=== PATIENT | female | born 1950 | race Caucasian/White ===

== ENCOUNTER 2021-02-03 12:37 | Emergency (ER) | payer MEDICARE, OTHER, SELFPAY ==
[2021-02-03] VITALS (12 sets, daily range): BP systolic 130–179; BP diastolic 60–86; PULSE 69–99; RESP 18; TEMP 37.7; O2SAT 92–99
--- NOTE | 2021-02-03 13:03 | DI.RAD.S_ITS ---
PROCEDURE: XR ACUTE ABDOMEN SERIES INDICATIONS: vomiting, has g tube TECHNIQUE: One view chest and two views of the abdomen were acquired. COMPARISON: None. FINDINGS: Surgical changes and devices: A gastrostomy tube is seen in place. An apparent vaginal pessary can be seen. Postoperative change of the right shoulder can be seen. Chest: Lungs are clear. The cardiac contours are within normal limits. The aorta demonstrates calcification and tortuosity. No pleural effusions. No pneumoperitoneum. Abdomen: Prominent gas can be seen within the stomach. Bowel gas pattern is normal. No suspicious calcifications. Visualized solid organ contours appear normal. Pelvic phleboliths are incidentally noted. Bones: No suspicious bony lesions. Mild levoconvex scoliotic curvature is noted. Age-appropriate bony degenerative changes are seen. IMPRESSION: Gastric tube seen in place. Prominent gas is seen within the stomach. A nonobstructive bowel gas pattern is seen. If clinically appropriate, please consider a repeat plain film study or a dedicated CT of the abdomen and pelvis, if the patient's symptoms persist or worsen. Postoperative and degenerative changes are seen. Dictated by: Param Russell M.D. on 02/03/2021 at 12:29 Approved by: Param Russell M.D. on 02/03/2021 at 12:31
[2021-02-03 14:04] LABS: Alanine Aminotransferase 30 IU/L (<35); Albumin 4.9 g/dL (3.5-5.0); Albumin Globulin Ratio 1.6 (1.0-2.8); Alkaline Phosphatase 89 U/L (38-126); Aspartate Aminotransferase 35 IU/L (14-36); Bilirubin Total 0.4 mg/dL (0.2-1.3); Blood Urea Nitrogen 19 mg/dL (7-17); Calcium 9.9 mg/dL (8.4-10.2); Carbon Dioxide 30 mmol/L (22-32); Chloride 103 mmol/L (98-107); Creatine Kinase 222 U/L (30-135); Estimated Glomerular Filt Rate > 60.0 mL/min (>60); Globulin 3.1 g/dL (1.7-4.1); Glucose 81 mg/dL (80-110); HEMOLYSIS < 15 (0-50); Lipase 83 U/L (23-300); Potassium 4.2 mmol/L (3.4-5.1); Sodium 139 mmol/L (137-145)
[2021-02-03 14:15] LABS: Troponin I < 0.012 ng/mL (0.01-0.034)
[2021-02-03 14:19] LABS: CKMB % Relative Index 3.2 % (1.5-5.0); Creatine Kinase MB 7.21 ng/mL (<2.37)
[2021-02-03 14:42] LABS: Add Manual Diff / Slide Review NO; Basophils Absolute Auto 0 /uL (0-100); Basophils Percent Auto 0.3 % (0-2); Eosinophils Absolute Auto 0 /uL (0-450); Eosinophils Percent Auto 0.2 % (2-4); Hematocrit 44.1 % (36-46); Hemoglobin 14.7 g/dL (12.0-16.0); Lymphocytes Absolute Auto 700 /uL (1100-4500); Lymphocytes Percent Auto 6.3 % (25-40); Mean Corpuscular HGB Conc 33.4 % (30-36); Mean Corpuscular Hemoglobin 30.7 PG (26-34); Mean Corpuscular Volume 91.8 fL (80-100); Monocytes Absolute Auto 700 /uL (0-900); Monocytes Percent Auto 6.4 % (3-14); Neutrophils Absolute Auto 9400 /uL (1500-7000); Neutrophils Percent Auto 86.8 % (50-75); Platelet Count 191 X10^3/uL (150-400); Red Blood Cell Count 4.81 X10^6/uL (4.0-5.2); Red Cell Distribution Width 14.3 % (11.6-14.8); White Blood Cell Count 10.9 X10^3/uL (4.5-11.0)
--- NOTE | 2021-02-03 14:56 | ED_ITS ---
HPI - Chest Pain General Chief Complaint: Chest Pain Stated Complaint: ALS, Plugged Feeding Tube, Vomiting Time Seen by Provider: 02/03/21 14:52 Source: patient and family Mode of arrival: Ambulatory Limitations: no limitations History of Present Illness HPI narrative: Patient is a 70-year-old female who has history of ALS peg tube presenting today of bright of complaints including abdominal pain headache, nausea initially PEG tube was clogged as well. However they were able to fix that problem with [employer]. Started today. She also has quite a bad headache which she typically does not normally have. No neck pain she does not have any fever. She is nonverbal secondary to ALS and uses a tablet to right on. Related Data Home Medications Medication Instructions Recorded Confirmed gabapentin 100 mg capsule 100 mg PO HS #0 10/17/12 08/22/20 venlafaxine 25 mg tablet 25 mg PO QDAY #0 10/17/12 08/22/20 dextromethorphan 20 mg-quinidine 1 cap PO BID 02/03/21 02/03/21 10 mg capsule (Nuedexta) Previous Rx's Medication Instructions Recorded oxyquinoline 0.025 %-sodium lauryl 1 ea VAGINAL .2x weekly #113.4 g 07/18/20 sulfate 0.01 % vaginal gel cephalexin 250 mg/5 mL oral 500 mg PO BID 7 Days #140 ml 02/03/21 suspension mupirocin 2 % topical ointment 1 applictn TOP BID #15 gram 02/03/21 ondansetron 4 mg disintegrating 4 mg PO Q6HR PRN #10 tab 02/03/21 tablet Allergies Allergy/AdvReac Type Severity Reaction Status Date / Time meperidine [From Demerol] Allergy Unknown Verified 02/03/21 12:53 Sulfa (Sulfonamide Allergy Unknown Verified 02/03/21 12:53 Antibiotics) Review of Systems Review of Systems Narrative: GENERAL: Denies chills, fatigue, malaise, fever, sweats, travel HEENT: Denies sinus pain, ear pain, sore throat, difficulty swallowing, neck pain RESPIRATORY: Denies dyspnea, cough, wheezing, hemoptysis, sputum. CARDIOVASCULAR: Denies chest pain, palpitations, orthopnea, edema GASTROINTESTINAL: See HPI : Denies dysuria, frequency, incontinence, hematuria, urinary retention, flank pain. MUSCULOSKELETAL: Denies weakness, joint pain, or bony pain SKIN: Irritation and drainage around PEG tube site NEUROLOGIC: ALS, see HPI no new weakness PSYCHIATRIC: No concerning psychosocial issues. 12 point review of systems is negative except for those stated above and HPI Patient History Medical History ALS (amyotrophic lateral sclerosis) (~2019) Fusion of spine Surgical History H/O arthroscopy Family History Father History of heart disease Social History Smoking Status: Never smoker Smoking Status: Never smoker alcohol intake frequency: 0-2 drinks per day Substance Use Type: does not use Exam Initial Vital Signs Initial Vital Signs: Vital Signs Temperature 99.8 F H 02/03/21 12:46 Pulse Rate 99 H 02/03/21 12:46 Respiratory Rate 18 02/03/21 12:46 Blood Pressure 179/86 H 02/03/21 12:46 Pulse Oximetry 99 02/03/21 12:46 GENERAL: Alert thin 70-year-old female overall appears well HEENT: Head atraumatic,EOMI, pupils reactive, CARDIOVASCULAR: Regular rate and rhythm without murmurs, rubs or gallops. RESPIRATORY: Breath sounds equal bilaterally, no wheezes rales or rhonchi. ABDOMEN: Soft, mild tenderness no distension no right upper quadrant tenderness peg tube is present EXTREMITIES: Normal range of motion, no clubbing or edema. Neurovascularly intact NEUROLOGICAL: Alert and oriented x4. At baseline SKIN: Minimal erythema around PEG tube some drainage is noted Course Orders Ordered: Discontinued Medications Cephalexin HCl (Cephalexin 250 Mg/5 Ml Prepack) [facility] Stop: 02/03/21 18:48 Last Admin: 02/03/21 18:56 Dose: 10 ml Documented by: EDUARDO Sodium Chloride (Normal Saline 0.9%) 1,000 mls @ 1,000 mls/hr IV BOLUS ONE Stop: 02/03/21 16:24 Last Infusion: 02/03/21 18:27 Dose: 0 mls/hr Documented by: Admin: 02/03/21 15:40 Dose: 1,000 mls/hr Documented by: RADHA Ketorolac Tromethamine (Ketorolac 30 Mg/Ml Vial) 15 mg IV NOW ONE Stop: 02/03/21 15:33 Last Admin: 02/03/21 15:39 Dose: 15 mg Documented by: RADHA Ondansetron HCl (Ondansetron 4 Mg Odt Prepack) 1 bottle MISC SEEINSTR ONE Stop: 02/03/21 18:48 Last Admin: 02/03/21 18:56 Dose: 1 bottle Documented by: EDUARDO Vital Signs Vital signs: Vital Signs - 8 hr 02/03/21 12:46 02/03/21 15:21 Temperature 99.8 F H Pulse Rate 99 H 75 Respiratory Rate 18 Blood Pressure 179/86 H 146/84 H Pulse Oximetry 99 97 MDM - Chest Pain Lab Data Result diagrams: 02/03/21 14:35 02/03/21 13:35 Labs: Lab Results 02/03/21 02/03/21 02/03/21 Range/Units 13:35 13:35 13:35 WBC (4.5-11.0) X10^3/uL RBC (4.0-5.2) X10^6/uL Hgb (12.0-16.0) g/dL Hct (36-46) % MCV (80-100) fL MCH (26-34) PG MCHC (30-36) % RDW (11.6-14.8) % Plt Count (150-400) X10^3/uL Neut % (Auto) (50-75) % Lymph % (Auto) (25-40) % [place] % (Auto) (3-14) % Eos % (Auto) (2-4) % Baso % (Auto) (0-2) % Neut # (Auto) (4181-0672) /uL Lymph # (Auto) (7135-0917) /uL [place] # (Auto) (0-900) /uL Eos # (Auto) (0-450) /uL Baso # (Auto) (0-100) /uL Sodium 139 (137-145) mmol/L Potassium 4.2 (3.4-5.1) mmol/L Chloride 103 (98-107) mmol/L Carbon Dioxide 30 (22-32) mmol/L BUN 19 H (7-17) mg/dL Creatinine 0.50 L (0.52-1.04) mg/dL Estimated GFR > 60.0 (>60) mL/min BUN/Creatinine Ratio 38.0 H (6-22) Glucose 81 (80-110) mg/dL Lactate 1.4 (0.7-2.1) mmol/L Calcium 9.9 (8.4-10.2) mg/dL Total Bilirubin 0.4 (0.2-1.3) mg/dL AST 35 (14-36) IU/L ALT 30 (<35) IU/L Alkaline Phosphatase 89 (38-126) U/L Total Creatine Kinase 222 H (30-135) U/L CK-MB (CK-2) 7.21 H (<2.37) ng/mL CK-MB (CK-2) Rel Index 3.2 (1.5-5.0) % Troponin I < 0.012 (0.01-0.034) ng/mL Total Protein 8.0 (6.3-8.2) g/dL Albumin 4.9 (3.5-5.0) g/dL Globulin 3.1 (1.7-4.1) g/dL Albumin/Globulin Ratio 1.6 (1.0-2.8) Lipase 83 (23-300) U/L Procalcitonin 0.06 (<0.5) ng/mL Urine Color Urine Appearance Urine pH (4.5-8.0) Ur Specific [place] (1.000-1.035) Urine Protein (Negative) Urine Glucose (UA) (Negative) g/dL Urine Ketones (NEGATIVE) Urine Occult Blood (Negative) Urine Nitrate (Negative) Urine Bilirubin (NEGATIVE) Urine Urobilinogen (0.2) E.U./dL Ur Leukocyte Esterase (NEGATIVE) Urine RBC (0-5/HPF) Urine WBC (0-5/HPF) Urine Bacteria (None) Ur Culture Indicated? SARS-CoV-2 (PCR) (Negative) 02/03/21 02/03/21 02/03/21 Range/Units 14:35 15:15 17:13 WBC 10.9 (4.5-11.0) X10^3/uL RBC 4.81 (4.0-5.2) X10^6/uL Hgb 14.7 (12.0-16.0) g/dL Hct 44.1 (36-46) % MCV 91.8 (80-100) fL MCH 30.7 (26-34) PG MCHC 33.4 (30-36) % RDW 14.3 (11.6-14.8) % Plt Count 191 (150-400) X10^3/uL Neut % (Auto) 86.8 H (50-75) % Lymph % (Auto) 6.3 L (25-40) % [place] % (Auto) 6.4 (3-14) % Eos % (Auto) 0.2 L (2-4) % Baso % (Auto) 0.3 (0-2) % Neut # (Auto) 9400 H (1096-2053) /uL Lymph # (Auto) 700 L (9861-6086) /uL [place] # (Auto) 700 (0-900) /uL Eos # (Auto) 0 (0-450) /uL Baso # (Auto) 0 (0-100) /uL Sodium (137-145) mmol/L Potassium (3.4-5.1) mmol/L Chloride (98-107) mmol/L Carbon Dioxide (22-32) mmol/L BUN (7-17) mg/dL Creatinine (0.52-1.04) mg/dL Estimated GFR (>60) mL/min BUN/Creatinine Ratio (6-22) Glucose (80-110) mg/dL Lactate (0.7-2.1) mmol/L Calcium (8.4-10.2) mg/dL Total Bilirubin (0.2-1.3) mg/dL AST (14-36) IU/L ALT (<35) IU/L Alkaline Phosphatase (38-126) U/L Total Creatine Kinase (30-135) U/L CK-MB (CK-2) (<2.37) ng/mL CK-MB (CK-2) Rel Index (1.5-5.0) % Troponin I (0.01-0.034) ng/mL Total Protein (6.3-8.2) g/dL Albumin (3.5-5.0) g/dL Globulin (1.7-4.1) g/dL Albumin/Globulin Ratio (1.0-2.8) Lipase (23-300) U/L Procalcitonin (<0.5) ng/mL Urine Color Yellow Urine Appearance Clear Urine pH 7.5 (4.5-8.0) Ur Specific [place] <=1.005 (1.000-1.035) Urine Protein Negative (Negative) Urine Glucose (UA) Negative (Negative) g/dL Urine Ketones Trace H (NEGATIVE) Urine Occult Blood Trace-intact (Negative) Urine Nitrate Negative (Negative) Urine Bilirubin Negative (NEGATIVE) Urine Urobilinogen 0.2 (0.2) E.U./dL Ur Leukocyte Esterase Trace H (NEGATIVE) Urine RBC 0-1/hpf (0-5/HPF) Urine WBC 1-5/hpf (0-5/HPF) Urine Bacteria Few (2-10) H (None) Ur Culture Indicated? Specimen cultured SARS-CoV-2 (PCR) Negative (Negative) Imaging Data CT scan - abdomen/pelvis: Radiologist's Impression: PROCEDURE:? CT ABDOMEN PELVIS W CON ? INDICATIONS:? ab pain ? TECHNIQUE:? After the administration of oral and IV contrast, axial sections were acquired from the lung bases to the pubic symphysis.? Coronal and sagittal reformats were performed.? For radiation dose reduction, the following was used:? automated exposure control, adjustment of mA and/or kV according to patient size. ? COMPARISON:? None. ? FINDINGS:? Image quality:? Excellent.? ? Lung bases:? Unremarkable.? ? Heart:? No significant findings. ? ? ABDOMEN: Liver:? Unremarkable.? ? Gallbladder:? The gallbladder is not definitely seen. Biliary ducts:? Unremarkable.? ? Pancreas:? Unremarkable.? ? Spleen:? Unremarkable.? ? Adrenal Glands:? Unremarkable.? ? Kidneys and Ureters:? Unremarkable.? ? ? Stomach and Bowel:? A percutaneous gastrostomy tube is seen, with the tip within the distal stomach.? The amount of gas and fluid within the stomach is not excessive.? No dilated loops of small bowel are seen.? The distal colon beginning at the level of the proximal descending colon appears mildly thickened and inflamed. Peritoneum:? No abnormal intraperitoneal fluid.? No free air.? ? Ventral Wall: ? No hernia.? Abdominal Nodes:? No retroperitoneal or mesenteric adenopathy by size criteria.? Vessels:? Aorta and inferior vena cava are normal in size.? ? PELVIS: Pelvic Organs:? Unremarkable.? ? A vaginal pessary can be seen. Bladder:? Unremarkable.? ? Pelvic Nodes: No enlarged lymph nodes.? Miscellaneous: No inguinal hernias are seen. ? ? ? Bones:? Mild levoconvex scoliotic curvature is noted.? Degenerative changes are seen throughout, which are worst at the L4-L5 level.? ? ? IMPRESSION:? ? Mild distal colonic wall thickening can be seen.? Please correlate with potential infectious and inflammatory causes of colitis. ? No findings of perforation or abscess can be seen. ? ? ? Incidental note is made of: Percutaneous gastrostomy tube Levoconvex scoliotic curvature new line focal L4-L5 degenerative change Vaginal pessary ? ? ? Dictated by: Param Russell M.D. on 02/03/2021 at 15:25 ? ? Abdominal x-ray: Radiologist's Impression: PROCEDURE:? XR ACUTE ABDOMEN SERIES ? INDICATIONS:? vomiting, has g tube ? TECHNIQUE:? One view chest and two views of the abdomen were acquired.? ? COMPARISON:? None. ? FINDINGS:? ? Surgical changes and devices:? A gastrostomy tube is seen in place.? An apparent vaginal pessary can be seen.? Postoperative change of the right shoulder can be seen. ? Chest:? Lungs are clear.? The cardiac contours are within normal limits. The aorta demonstrates calcification and tortuosity.? No pleural effusions.? No pne umoperitoneum.? ? Abdomen:? Prominent gas can be seen within the stomach.? Bowel gas pattern is normal.? No suspicious calcifications.? Visualized solid organ contours appear normal.? Pelvic phleboliths are incidentally noted.? ? Bones:? No suspicious bony lesions.? Mild levoconvex scoliotic curvature is noted.? Age-appropriate bony degenerative changes are seen.? ? ? IMPRESSION:? Gastric tube seen in place. ? Prominent gas is seen within the stomach. ? A nonobstructive bowel gas pattern is seen. ? If clinically appropriate, please consider a repeat plain film study or a dedicated CT of the abdomen and pelvis, if the patient's symptoms persist or worsen. ? Postoperative and degenerative changes are seen.? Dictated by: Param Russell M.D. on 02/03/2021 at 12:29 ? ? Approved by: Param Russell M.D. on 02/03/2021 at 12:31 ? ECG Data Interpretation: Sinus rhythm rate 79 KS interval 124 QRS [address] c hanges or T-wave inversions slight ST depression but not persistent MDM Narrative Medical decision making narrative: Patient is found have UTI she had low-grade fever of 100.5 but overall is not septic. She had a mild headache which resolved with Toradol no meningeal signs. Abdomen is slightly tender CT shows possible gastroenteritis but no obstruction. Peg tube which was previously clogged is now working out. She has some mild irritation around her PEG tube site which she says is draining a little bit more despite antibiotic ointment. Discharge Plan Departure Patient Disposition: Home Clinical Impression: Acute UTI, Cellulitis Instructions: DI for Urinary Tract Infection (UTI) Activity Restrictions/Additional Instructions: *You have been diagnosed with UTI, mild cellulitis around her PEG tube site *What to do: I am so glad that her headache has improved. You have been found have a UTI which may be causing some of your headache and low-grade fever will treat this with antibiotics. The mild inflammation and redness around her PEG tube site will change up the appointment to see if it improves along with antibiotics *Continue to take medications as directed--> [facility] [place] Keflex 500 mg twice a day for 7 days Zofran 4 mg every 6 hours if needed for nausea or vomiting Mupirocin ointment twice daily around PEG tube site *Follow up with your primary care provider in 2-3 days *Return to ER if you should have increasing weakness, increasing confusion, fever, increasing redness any new, worsening or concerning symptoms Prescriptions: New mupirocin 2 % ointment 1 applictn TOP BID Qty: 15 RF: 0 ondansetron 4 mg tablet,disintegrating 4 mg PO Q6HR PRN (Reason: nausea and vomiting) Qty: 10 RF: 0 cephalexin 250 mg/5 mL suspension for reconstitution 500 mg PO BID 7 Days Qty: 140 RF: 0 No Action gabapentin 100 MG capsule 100 mg PO HS Qty: 0 RF: 0 venlafaxine 25 MG tablet 25 mg PO QDAY Qty: 0 RF: 0 oxyquinoline-sod.lauryl sulfat 0.025-0.01 % gel 1 ea vaginal .2x weekly Qty: 113.4 RF: 2 Nuedexta 20-10 mg capsule 1 cap PO BID RF: 0 Referrals: Jimbo Armijo MD [Primary Care Provider] -
--- NOTE | 2021-02-03 15:33 | DI.CT.S_ITS ---
PROCEDURE: CT ABDOMEN PELVIS W CON INDICATIONS: ab pain TECHNIQUE: After the administration of oral and IV contrast, axial sections were acquired from the lung bases to the pubic symphysis. Coronal and sagittal reformats were performed. For radiation dose reduction, the following was used: automated exposure control, adjustment of mA and/or kV according to patient size. COMPARISON: None. FINDINGS: Image quality: Excellent. Lung bases: Unremarkable. Heart: No significant findings. ABDOMEN: Liver: Unremarkable. Gallbladder: The gallbladder is not definitely seen. Biliary ducts: Unremarkable. Pancreas: Unremarkable. Spleen: Unremarkable. Adrenal Glands: Unremarkable. Kidneys and Ureters: Unremarkable. Stomach and Bowel: A percutaneous gastrostomy tube is seen, with the tip within the distal stomach. The amount of gas and fluid within the stomach is not excessive. No dilated loops of small bowel are seen. The distal colon beginning at the level of the proximal descending colon appears mildly thickened and inflamed. Peritoneum: No abnormal intraperitoneal fluid. No free air. Ventral Wall: No hernia. Abdominal Nodes: No retroperitoneal or mesenteric adenopathy by size criteria. Vessels: Aorta and inferior vena cava are normal in size. PELVIS: Pelvic Organs: Unremarkable. A vaginal pessary can be seen. Bladder: Unremarkable. Pelvic Nodes: No enlarged lymph nodes. Miscellaneous: No inguinal hernias are seen. Bones: Mild levoconvex scoliotic curvature is noted. Degenerative changes are seen throughout, which are worst at the L4-L5 level. IMPRESSION: Mild distal colonic wall thickening can be seen. Please correlate with potential infectious and inflammatory causes of colitis. No findings of perforation or abscess can be seen. Incidental note is made of: Percutaneous gastrostomy tube Levoconvex scoliotic curvature new line focal L4-L5 degenerative change Vaginal pessary Dictated by: Param Russell M.D. on 02/03/2021 at 15:25 Approved by: Param Russell M.D. on 02/03/2021 at 15:28
[2021-02-03] MEDS: KETOROLAC 30 MG/ML VIAL 15 MG IV (15:39)
[2021-02-03 15:40] LABS: COVID19 -Nasal RAPID Negative (Negative)
[2021-02-03] MEDS: SODIUM CHLORIDE 0.9% 1,000 ML 1000 ML IV (15:40)
[2021-02-03 15:42] LABS: Lactate (Lactic Acid) 1.4 mmol/L (0.7-2.1)
[2021-02-03 15:59] LABS: Procalcitonin 0.06 ng/mL (<0.5)
[2021-02-03 17:17] LABS: Appearance Urine UA CLEAR; Bilirubin Urine UA NEGATIVE (NEGATIVE); Color Urine UA YELLOW; Glucose Urine UA NEGATIVE (Negative); Ketones Urine UA TRACE (NEGATIVE); Leukocyte Esterase Urine UA TRACE (NEGATIVE); Nitrite Urine UA NEGATIVE (Negative); Occult Blood Urine UA TRACE-INTACT (Negative); Protein Urine UA NEGATIVE (Negative); Specific Gravity Urine UA <=1.005 (1.000-1.035); Urobilinogen Urine UA 0.2 E.U./dL (0.2)
[2021-02-03 17:34] LABS: Bacteria Urine Few (2-10); RBC Urine 0-1/HPF (0-5/HPF); WBC Urine 1-5/HPF (0-5/HPF); pH Urine UA 7.5 (4.5-8.0)
[2021-02-03 17:35] LABS: Culture Indicated Urine Specimen Cultured
[2021-02-03] MEDS: cephALEXin 250 MG/5 ML PREPACK 1 BOTTLE MISC (18:56)
[2021-02-03] MEDS: ONDANSETRON 4 MG ODT PREPACK 1 BOTTLE MISC (18:56)
== END 2021-02-03 19:06 | disposition home or self-care (01) ==
PROVIDERS: Emergency Provider Emergency Medicine; PCP Family Medicine
DX: N39.0 Urinary tract infection, site not specified (principal); K94.22 Gastrostomy infection; R51.9 Headache, unspecified; R11.10 Vomiting, unspecified; R50.9 Fever, unspecified; Z20.822 Contact with and (suspected) exposure to COVID-19
CPT/HCPCS: 36415; 74022; 74177; 80053; 81001; 82550; 82553; 83605; 83690; 84145; 84484; 85025; 87086; 87635; 93005; 96361; 96374; 99284; 99285; C9803; J1885; Q9967

== ENCOUNTER → 2021-02-19 14:16 | Outpatient (CLI) | payer MEDICARE, OTHER, SELFPAY | PROVIDERS: PCP Family Medicine; Visit Provider Nurse Practitioner Family | DX: M54.5 Low back pain (principal); R11.0 Nausea | CPT/HCPCS: 87086 ==